=== PATIENT | female | born 1980 | race Hispanic/Latino ===

== ENCOUNTER → 2018-02-18 | Outpatient (CLI) | payer MEDICAID | LOC: RAH 10:05 | PROVIDERS: ATTEND Family Medicine | DX: R92.8 Other abnormal and inconclusive findings on diagnostic imaging of breast (principal); R92.2 Inconclusive mammogram | CPT/HCPCS: 77066 ==

== ENCOUNTER → 2019-07-20 | Outpatient (CLI) | payer MEDICAID | END | disposition home or self-care (01) | LOC: SHCH 09:38 | PROVIDERS: ATTEND Internal Medicine Cardiovascular Disease | DX: I08.8 Other rheumatic multiple valve diseases (principal); I25.5 Ischemic cardiomyopathy | CPT/HCPCS: 93306 ==

== ENCOUNTER 2019-08-25 10:00 | Inpatient (IN) | payer MEDICAID ==
[~2019-08-25] VITALS: Ht 162.6 cm; Wt 51.3 kg
[2019-08-25 12:40] VITALS: BP 126/78
[2019-08-25 12:50] LABS: ALBUMIN 3.6 g/dL (3.5-5.0); BILIRUBIN,TOTAL 0.4 mg/dL (0.2-1.0); CREATININE 1.2 mg/dL (0.5-1.5); TOTAL PROTEIN, SERUM 7.4 g/dL (6.0-8.3)
[2019-08-25 12:59] LABS: INR 1.04 (0.85-1.15); PARTIAL THROMBOPLASTIN TIME 39.3 SEC (26.3-35.5); PROTHROMBIN TIME 10.9 SEC (9.6-11.6)
[2019-08-25] MEDS ORDERED: CARV12.511 PO (13:01)
[2019-08-25 13:03] LABS: BASOPHILS % (AUTO) 0.4 % (0.0-5.0); EOSINOPHILS % (AUTO) 0.1 % (0.0-8.0); HEMATOCRIT 32.3 % (36-48); LYMPHOCYTES % (AUTO) 10.5 % (21.0-51.0); MEAN CORPUSCULAR HGB CONC 34.2 g/dL (32.0-36.0); MEAN CORPUSCULAR VOLUME 93.6 fL (79-99); MONOCYTES % (AUTO) 3.6 % (3.0-13.0); NEUTROPHILS % (AUTO) 85.4 % (40.0-77.0); PLATELET COUNT (AUTO) 164 K/uL (130-400); RED BLOOD CELL COUNT(AUTO) 3.45 MIL/uL (4.00-5.50); WHITE BLOOD COUNT (AUTO) 4.5 K/uL (4.8-10.8)
[2019-08-25] MEDS ORDERED: PRED10TA3 PO (13:03)
[2019-08-25] MEDS ORDERED: FERR325T22 PO (13:03)
[2019-08-25] MEDS ORDERED: ASPI-1012 PO (16:47)
[2019-08-25] MEDS ORDERED: POTA10TA14 PO (16:47)
[2019-08-25] MEDS ORDERED: HYDR200T4 PO (16:47)
[2019-08-25] MEDS ORDERED: FURO20TA4 PO (16:47)
[2019-08-26] VITALS (32 sets, daily range): BP systolic 73–185; BP diastolic 46–102
[2019-08-26] MEDS ORDERED: SODIUM CHLORIDE 0.9% 1000ML 1,000 ML IV ONE (06:14)
[2019-08-26] MEDS ORDERED: CEFUROXIME SODIUM 1.5 GM VIAL ONE (06:14)
--- NOTE | 2019-08-26 07:21 | NUR ---
POTENTIAL FOR INFECTION: SHAVED BILATERAL GROIN AREA AND FOLLOWED BY WIPING WITH JASON: 2% CHLORHEXIDINE GLUCONATE CLOTH PATIENTS PRE-OP SKIN PREP FROM NECK TO LOWER EXTREMITIES.
[2019-08-26] MEDS ORDERED: NITROGLYCERIN 50 MG/D5% WATER 1 BOT ONE (07:39)
[2019-08-26] MEDS ORDERED: NOREPINEPHRINE BITARTRATE 1 MG/1 ML ML IV ONE ×2 (07:39→07:58)
[2019-08-26] MEDS ORDERED: AMIODARONE HCL 50 MG/ML 3 ML VIAL ONE (07:39)
[2019-08-26] MEDS ORDERED: ROPIVACAINE 0.5% 5MG/ML 30ML IJ ONE (07:43)
[2019-08-26] MEDS ORDERED: BACITRACIN 50,000 UNIT VIAL ONE (07:44)
[2019-08-26] MEDS ORDERED: EPINEPHRINE 1 MG/ML AMPULE ONE (07:58)
[2019-08-26] MEDS ORDERED: LIDOCAINE PF 2% 5ML ABBOJECT ONE (07:58)
[2019-08-26] MEDS ORDERED: AMINOCAPROIC ACID 250 MG/ML 20 ML VIAL IV ONE ×2 (07:58→13:42)
[2019-08-26] MEDS ORDERED: PROTAMINE SULFATE 10 MG/ML 25ML VIAL IV ONE (07:58)
[2019-08-26] MEDS ORDERED: HEPARIN SODIUM 1000UNIT/ML 10ML VIAL ONE (07:58)
[2019-08-26] MEDS ORDERED: ESMOLOL HCL 10 MG/ML 10 ML VIAL ONE (07:58)
[2019-08-26] MEDS ORDERED: PROPOFOL 10 MG/ML 20ML VIAL IV ONE (07:59)
[2019-08-26] MEDS ORDERED: FENTANYL CITRATE PF 50 MCG/1 ML 20ML VIAL IJ ONE (07:59)
[2019-08-26] MEDS ORDERED: ROCURONIUM 10MG/1ML SYR 10 MG/ML ML ONE (08:00)
[2019-08-26] MEDS ORDERED: MIDAZOLAM HCL 1 MG/ML 2ML VIAL ONE (08:00)
[2019-08-26] MEDS ORDERED: CEFUROXIME SODIUM 1.5 GM VIAL IVP ONE (08:00)
[2019-08-26] MEDS ORDERED: DELNIDO FORMULA 0 BAG IV ONE (08:08)
[2019-08-26] MEDS ORDERED: SODIUM CHLORIDE 0.9% 500ML 500 ML IV SCH (08:13)
[2019-08-26] MEDS ORDERED: SODIUM CHLORIDE 0.9% 1000ML 1,000 ML IV SCH (08:15)
[2019-08-26] MEDS ORDERED: NOREPINEPHRINE 4MG/NS 250ML 250 ML IV PRN (08:15)
[2019-08-26] MEDS ORDERED: SODIUM CHLORIDE 0.9% 250 ML IV PRN (08:15)
[2019-08-26] MEDS ORDERED: PROPOFOL 1000 MG/100 ML 100 ML IV PRN (08:15)
[2019-08-26] MEDS ORDERED: AMINOCAPROIC ACID 15,000 MG in SODIUM CHLORIDE 0.9% 250 ML IV SCH (08:15)
[2019-08-26] MEDS ORDERED: POTASSIUM PHOS 15 mMOL+NS250ML 250 ML IV PRN (08:15)
[2019-08-26] MEDS ORDERED: ALBUMIN (HUMAN) 5% 250 ML IV PRN (08:15)
[2019-08-26] MEDS ORDERED: DEXTROSE 50%-WATER 50 ML DISP.SYRIN IV PRN (08:15)
[2019-08-26] MEDS ORDERED: MORPHINE SULFATE 4 MG/1ML SYG IV PRN (08:15)
[2019-08-26] MEDS ORDERED: POTASSIUM CHLORIDE 20MEQ/100ML 100 ML IV PRN (08:15)
[2019-08-26] MEDS ORDERED: NITROGLYCERIN 50 MG/D5% WATER 250 BOT IV SCH (08:15)
[2019-08-26] MEDS ORDERED: EPINEPHRINE 8 MG in DEXTROSE 5%-WATER 250 ML IV PRN (08:15)
[2019-08-26] MEDS ORDERED: GLUCAGON 1MG KIT 1 MG ML IM PRN (08:15)
[2019-08-26] MEDS ORDERED: Q-PUMP 1 EACH IRRIG SCH (08:15)
[2019-08-26] MEDS ORDERED: INSULIN REGULAR, HUMAN 3ML 100 UNIT in SODIUM CHLORIDE 0.9% 99 ML IV SCH ×2 (08:15)
[2019-08-26] MEDS ORDERED: MORPHINE SULFATE 2 MG/ML 1ML SYG IV PRN (08:15)
[2019-08-26] MEDS ORDERED: SODIUM CHLORIDE 0.9% 10 ML VIAL IVP PRN (08:15)
[2019-08-26] MEDS ORDERED: MAGNESIUM 2GM PREMIX 50ML 50 ML IV PRN (08:15)
[2019-08-26] MEDS ORDERED: ONDANSETRON HCL 4 MG/2 ML VIAL IV PRN (08:15)
[2019-08-26 08:37] LABS: ABG HCO3 20.8 mmol/L (21.0-28.0); ABG PCO2 37 mmHg (32-45)
[2019-08-26] MEDS: FAMOTIDINE/PF 20 MG/2 ML VIAL IV SCH ×2 (09:00→20:34)
[2019-08-26] MEDS ORDERED: ROPIVACAINE 0.2% 2MG/ML 100ML VIAL IJ ONE (10:00)
[2019-08-26 10:25] LABS: ABG BASE EXCESS -4.7 mmol/L (-2.0-3.0); ABG HCO3 20.3 mmol/L (21.0-28.0); ABG OXYGEN SATURATION 98.9 % (95.0-99.0); ABG PCO2 37 mmHg (32-45)
[2019-08-26 10:49] LABS: ABG BASE EXCESS 1.6 mmol/L (-2.0-3.0); ABG OXYGEN SATURATION 98.8 % (95.0-99.0); ABG PCO2 34 mmHg (32-45)
[2019-08-26 11:25] LABS: ABG BASE EXCESS -12.5 mmol/L (-2.0-3.0); ABG HCO3 13.9 mmol/L (21.0-28.0); ABG OXYGEN SATURATION 99.2 % (95.0-99.0); ABG PCO2 34 mmHg (32-45)
[2019-08-26 11:33] LABS: ABG BASE EXCESS 7.2 mmol/L (-2.0-3.0); ABG HCO3 31.1 mmol/L (21.0-28.0); ABG OXYGEN SATURATION 98.7 % (95.0-99.0); ABG PCO2 41 mmHg (32-45)
[2019-08-26] MEDS ORDERED: VASOPRESSIN 20 UNITS/ML 1ML VIAL ONE (11:36)
[2019-08-26] MEDS ORDERED: GLYCOPYRROLATE 1 MG/5 ML SYRINGE ONE (11:38)
[2019-08-26 11:55] LABS: ABG BASE EXCESS -9.3 mmol/L (-2.0-3.0); ABG PCO2 33 mmHg (32-45)
[2019-08-26] MEDS ORDERED: SODIUM BICARB 50MEQ 50ML VIAL ONE ×2 (11:57)
[2019-08-26 12:39] LABS: ABG BASE EXCESS -0.6 mmol/L (-2.0-3.0); ABG HCO3 22.8 mmol/L (21.0-28.0); ABG OXYGEN SATURATION 98.8 % (95.0-99.0); ABG PCO2 33 mmHg (32-45)
[2019-08-26] MEDS ORDERED: INSULIN HUMULIN R 100 UNIT/ML 3ML ONE (12:44)
--- NOTE | 2019-08-26 13:13 | NUR ---
POST OP ASSESSMENT Received to CVR immediately post op. Not yet responsive to stimulation. No sedation infusing. ST on tele with strong apical heart tones. VS/hemodynamics as recorded. Received pt on IV levophed gtt @5mcg/min, epinephrine gtt @0.15mcg/kg/min, amicar @50ml/hr. OGT in place. Abd flat - absent bowel sounds. Right upper chest surgical drsgs with small amount of bloody drainage - will observe. Ambu infusion catheter in use. CT 's x2 to right lateral chest in place - sanguineous drainage. CT's to 20cm suction. No evidence of air leak. Epicardial wires x2 sets in place - secured. Temporary generator off. Bilateral groin drsgs clean, dry. No evidence of bleeding/oozing or hematoma. F/C patent - clear yellow urine. GARCIA hose/SCD's applied to BLE's. Left IJ CVP line in use. Left radial arterial line patent with acceptable waveform. PIV to LH in use. Assessment completed/recorded.
[2019-08-26] MEDS ORDERED: CEFAZOLIN SODIUM 1 GM VIAL IV SCH (13:15)
[2019-08-26 13:36] LABS: ABG HCO3 22.2 mmol/L (21.0-28.0); ABG OXYGEN SATURATION 98.9 % (95.0-99.0); ABG PCO2 41 mmHg (32-45)
[2019-08-26] MEDS ORDERED: SODIUM BICARB 8.4% 50ML SYRINGE IVP ONE (13:42)
[2019-08-26] MEDS ORDERED: HEPARIN SODIUM 1000UNIT/ML 10ML VIAL IV ONE (13:42)
[2019-08-26] MEDS ORDERED: MANNITOL 25% 50ML VIAL IV ONE (13:42)
[2019-08-26] MEDS ORDERED: PHENYLEPHRINE HCL 10 MG/ML 1ML VIAL IV ONE (13:42)
[2019-08-26] MEDS ORDERED: CALCIUM CHLORIDE 100 MG/ML 10 ML SYG IVP ONE (13:42)
[2019-08-26] MEDS ORDERED: MAGNESIUM SULFATE 1 GM/2 ML VIAL IM ONE (13:42)
[2019-08-26] MEDS ORDERED: ALBUMIN (HUMAN) 25% 50 ML IV ONE (13:42)
[2019-08-26 14:10] LABS: HEMATOCRIT 40.4 % (36-48); MEAN CORPUSCULAR HEMOGLOBIN 31.2 pg (27.0-33.0); MEAN CORPUSCULAR HGB CONC 33.3 g/dL (32.0-36.0); MEAN CORPUSCULAR VOLUME 93.5 fL (79-99); NUCLEATED RED BLOOD CELLS 0.1 % (0.0-0.19); PLATELET COUNT (AUTO) 85 K/uL (130-400); RED BLOOD CELL COUNT(AUTO) 4.32 MIL/uL (4.00-5.50); RED CELL DISTRIBUTION WIDTH 15.1 % (11.0-15.5); WHITE BLOOD COUNT (AUTO) 28.4 K/uL (4.8-10.8)
[2019-08-26 14:20] LABS: INR 1.17 (0.85-1.15); PARTIAL THROMBOPLASTIN TIME 36.5 SEC (26.3-35.5); PROTHROMBIN TIME 12.2 SEC (9.6-11.6)
[2019-08-26 14:31] LABS: CREATININE 1.2 mg/dL (0.5-1.5); MAGNESIUM 3.4 mg/dL (1.80-2.40); PHOSPHORUS 1.6 mg/dL (2.5-4.9); POTASSIUM 3.1 mmol/L (3.5-5.1)
--- NOTE | 2019-08-26 14:53 | NUR ---
STATUS ST on tele. Hemodynamics maintained. IV gtt remain unchanged. Pt not yet responsive to stimulation. Will observe.
[2019-08-26 14:55] LABS: PLATELET MORPHOLOGY COMMENT DECREASED
[2019-08-26] MEDS: SODIUM BICARB 50MEQ 50ML VIAL IV PRN (15:00)
--- NOTE | 2019-08-26 15:58 | NUR ---
STATUS Family member at bedside - unable to provide useful intake information. Questions addressed - aware of CVR visitation. CVR phone number provided to pt's daughter. Pt beginning to arouse with verbal stimulation. Attempts made to reorient/reassure. Does not maintain adequate level of arousal. ST on tele. Strong apical heart tones. VS/hemodynamics as recorded. IV levophed gtt remains @4mcg/min.
[2019-08-26] MEDS: CEFAZOLIN SODIUM 1 GM VIAL IV SCH (16:58)
[2019-08-26] MEDS: FERROUS SULFATE 325 MG TABLET.DR PO SCH (17:04)
[2019-08-26 17:45] LABS: ABG BASE EXCESS 1.2 mmol/L (-2.0-3.0); ABG HCO3 26.3 mmol/L (21.0-28.0); ABG OXYGEN SATURATION 99.2 % (95.0-99.0); ABG PCO2 43 mmHg (32-45)
--- NOTE | 2019-08-26 18:12 | NUR ---
EXTUBATION Weaning parameters, ABG's within acceptable limits. Pt extubated to 40% aerosol mask. Post extubation instructions explained to pt by R.T.
--- NOTE | 2019-08-26 19:30 | NUR ---
ASSESSMENT PT RESTING IN BED. IV FLUIDS INFUSING WITHOUT DIFFICULTY. REPOSITIONS SELF, MOVES ALL EXTREMITIES. DRSG TO RIGHT/LATERAL CHEST AND BILATERAL GROINS INTACT WITH DRAINAGE NOTED AND MARKED. CHEST TUBE TO 2OCM SUCTION. PACING WIRES IN PLACE BUT OFF. 16FR EVANS CATH INTACT AND DRAINING CLEAR YELLOW URINE. GARCIA HOSE/SCD IN PLACE. NURSES AT BEDSIDE 1:1. ASSESSMENT COMPLETED, SEE FLOW SHEET.
[2019-08-26 19:58] LABS: ABG BASE EXCESS 0.5 mmol/L (-2.0-3.0); ABG HCO3 25.2 mmol/L (21.0-28.0); ABG OXYGEN SATURATION 99.2 % (95.0-99.0); ABG PCO2 41 mmHg (32-45)
--- NOTE | 2019-08-26 20:00 | NUR ---
ABG ABG COMPLETED, FIO2 DECREASED TO 28% PER AEROSOL MASK.
--- NOTE | 2019-08-26 22:30 | NUR ---
O2 PLACED ON 02 2L NC
[2019-08-27] VITALS (24 sets, daily range): BP systolic 94–134; BP diastolic 38–86
[2019-08-27] MEDS: CEFAZOLIN SODIUM 1 GM VIAL IV SCH ×2 (01:10→09:34)
[2019-08-27 04:15] LABS: ABG BASE EXCESS -1.8 mmol/L (-2.0-3.0); ABG HCO3 22.8 mmol/L (21.0-28.0); ABG OXYGEN SATURATION 98.7 % (95.0-99.0); ABG PCO2 39 mmHg (32-45)
[2019-08-27 04:21] LABS: MEAN CORPUSCULAR HEMOGLOBIN 31.2 pg (27.0-33.0); MEAN CORPUSCULAR HGB CONC 33.9 g/dL (32.0-36.0); MEAN CORPUSCULAR VOLUME 91.9 fL (79-99); PLATELET COUNT (AUTO) 93 K/uL (130-400); RED BLOOD CELL COUNT(AUTO) 3.15 MIL/uL (4.00-5.50); RED CELL DISTRIBUTION WIDTH 15.4 % (11.0-15.5); WHITE BLOOD COUNT (AUTO) 19.5 K/uL (4.8-10.8)
[2019-08-27] MEDS: SODIUM BICARB 50MEQ 50ML VIAL IV PRN (04:22)
[2019-08-27] MEDS: TRAMADOL HCL 50 MG TABLET PO PRN ×2 (04:23→18:32)
[2019-08-27 04:39] LABS: CREATININE 1.9 mg/dL (0.5-1.5); MAGNESIUM 2.3 mg/dL (1.80-2.40); POTASSIUM 4.2 mmol/L (3.5-5.1)
[2019-08-27 04:41] LABS: INR 1.06 (0.85-1.15); PARTIAL THROMBOPLASTIN TIME 33.7 SEC (26.3-35.5); PROTHROMBIN TIME 11.1 SEC (9.6-11.6)
--- NOTE | 2019-08-27 05:33 | NUR ---
TRANSFER PT TRANSFERRED INTO ROOM 206. CONNECTED TO BEDSIDE MONITOR. WHITE BOARD UP-DATED.
--- NOTE | 2019-08-27 07:02 | NUR ---
REPORT BEDSIDE REPORT GIVEN TO MIKE LAWRENCE. PENDING ION CALCIUM ENDORSED TO MIKE LAWRENCE
[2019-08-27] MEDS ORDERED: ASPIRIN 81MG TAB.CHEW PO SCH (09:00)
[2019-08-27] MEDS ORDERED: HYDROCORTISONE SOD SUCCINATE 100 MG/2 ML VIAL IV SCH (09:00)
[2019-08-27] MEDS: METOPROLOL TARTRATE 25 MG TAB PO SCH ×2 (09:00→20:06)
[2019-08-27] MEDS ORDERED: CALCIUM GLUCONATE 1 GM/10 ML VIAL IV ONE (09:22)
[2019-08-27] MEDS: FERROUS SULFATE 325 MG TABLET.DR PO SCH ×2 (09:31→17:24)
[2019-08-27] MEDS: PREDNISONE 10 MG TABLET PO SCH (09:32)
[2019-08-27] MEDS: HYDROXYCHLOROQUINE SULFATE 200 MG TAB PO SCH (09:32)
[2019-08-27] MEDS: CALCIUM GLUCONATE 1 GM in SODIUM CHLORIDE 0.9% 50 ML IV PRN ×2 (09:33→09:34)
[2019-08-27] MEDS: FAMOTIDINE/PF 20 MG/2 ML VIAL IV SCH ×2 (09:34→20:01)
[2019-08-27] MEDS ORDERED: ALBUMIN (HUMAN) 5% 250 ML IV ONE (11:55)
--- NOTE | 2019-08-27 12:31 | NUR ---
Pt WITH EXTERNAL PACER, PAIN PUMP, CHEST TUBES, EVANS Addendum: 08/27/19 at 1232 by SUN SCHWARZ, PT PT Amended: Links added.
[2019-08-27] MEDS ORDERED: DEXTROSE 5%-WATER 1,000 ML IV SCH (19:15)
--- NOTE | 2019-08-27 19:30 | NUR ---
price note met with patient and states resides athome with children, and 19yo daughter. daughter and neighbor help care for her children. pt independent with ambulation and adls. no dme. no services. no dc needs. dc plan is for home. is open to snf if needed and orderd by . Addendum: 08/27/19 at 1932 by IDANIA BEST CM Amended: Links added.
[2019-08-27] MEDS ORDERED: WARFARIN SODIUM 2 MG TAB PO ONE (20:20)
[2019-08-28] VITALS (23 sets, daily range): BP systolic 101–139; BP diastolic 56–92
[2019-08-28] MEDS: TRAMADOL HCL 50 MG TABLET PO PRN ×2 (01:13→19:19)
[2019-08-28 04:40] LABS: BASOPHILS % (AUTO) 0.2 % (0.0-5.0); EOSINOPHILS % (AUTO) 0.1 % (0.0-8.0); LYMPHOCYTES % (AUTO) 10.4 % (21.0-51.0); MEAN CORPUSCULAR HEMOGLOBIN 31.3 pg (27.0-33.0); MEAN CORPUSCULAR HGB CONC 33.7 g/dL (32.0-36.0); MEAN CORPUSCULAR VOLUME 92.8 fL (79-99); MONOCYTES % (AUTO) 6.5 % (3.0-13.0); NEUTROPHILS % (AUTO) 82.8 % (40.0-77.0); PLATELET COUNT (AUTO) 60 K/uL (130-400); RED BLOOD CELL COUNT(AUTO) 1.99 MIL/uL (4.00-5.50); WHITE BLOOD COUNT (AUTO) 12.7 K/uL (4.8-10.8)
[2019-08-28 04:48] LABS: POTASSIUM 3.9 mmol/L (3.5-5.1)
[2019-08-28 04:50] LABS: HEMATOCRIT 18.4 % (36-48)
[2019-08-28 04:51] LABS: INR 1.02 (0.85-1.15); PROTHROMBIN TIME 10.7 SEC (9.6-11.6)
--- NOTE | 2019-08-28 05:24 | NUR ---
DR. DAVID HERNANDEZ NOTIFIED OF LATEST H/H NEW ORDERS RECEIVED AND WILL BE CARRIED OUT. CT TUBE LINES WERE STRIPPED NO INCREASE IN OUTPUT NOTED. DRESSING TO CHEST TUBES CHANGED AT THIS TIME MODERATE SEROSANGUINEOUS DRAINAGE ON DRESSING NO ACTIVE LEAKING NOTED AT INSERTION SITES. WILL CONTINUE TO MONITOR.
--- NOTE | 2019-08-28 07:31 | NUR ---
PT STABLE-FEELS WEAK AND LIGHTHEADED. RECEIVING BLOOD TRANSFUSION AT PRESENT TIME. AFEBRILE. PT EDUCATED ON MECHANICAL VALVE REPLACEMENT POST OP CARE AND THERAPY. VERBALIZES UNDERSTANDING . WILL MAINTAIN BEDREST FOR NOW UNTIL TRANSFUSED AND FEELING BETTER.
[2019-08-28] MEDS: METOPROLOL TARTRATE 25 MG TAB PO SCH ×2 (07:34→20:31)
[2019-08-28] MEDS: FERROUS SULFATE 325 MG TABLET.DR PO SCH ×2 (08:45→17:06)
[2019-08-28] MEDS: HYDROXYCHLOROQUINE SULFATE 200 MG TAB PO SCH (08:45)
[2019-08-28] MEDS: PREDNISONE 10 MG TABLET PO SCH (08:45)
[2019-08-28] MEDS: FAMOTIDINE/PF 20 MG/2 ML VIAL IV SCH ×2 (08:45→20:31)
[2019-08-28] MEDS ORDERED: HYDROCORTISONE SOD SUCCINATE 100 MG/2 ML VIAL IV SCH (09:00)
--- NOTE | 2019-08-28 11:43 | NUR ---
GETTING TRANSFUSION. HELD PER RENE LAWRENCE
--- NOTE | 2019-08-28 12:09 | NUR ---
PT HAS RECEIVED 2 UNITS PRBCS. OFF VASOPRESSORS. STABLE VS. OUT OF BED TO CHAIR. LEFT RADIAL A-LINE REMOVED INTACT. NO HEMATOMA. VERBALIZES NO COMPLAINTS. PENDING CV ROUNDS. STILL HAS 2 CHEST TUBES AND LEFT INTERNAL JUGULAR CORDIS CATH.
--- NOTE | 2019-08-28 14:55 | NUR ---
PT AMBULATED IN HALLWAY AND NURSES STATION. NO DISTRESS. NO SOB OR DIZZINESS. NOW SITTING AT EDGE OF BED. CALL LIGHT WITH IN REACH
--- NOTE | 2019-08-28 19:32 | NUR ---
HAND OFF REPORT GIVEN TO KEVAN LAWRENCE
[2019-08-29] VITALS (24 sets, daily range): BP systolic 114–144; BP diastolic 71–102
[2019-08-29] MEDS: TRAMADOL HCL 50 MG TABLET PO PRN ×2 (03:14→14:34)
[2019-08-29 04:16] LABS: BASOPHILS % (AUTO) 0.4 % (0.0-5.0); EOSINOPHILS % (AUTO) 0.4 % (0.0-8.0); HEMATOCRIT 25.8 % (36-48); LYMPHOCYTES % (AUTO) 13.4 % (21.0-51.0); MEAN CORPUSCULAR HEMOGLOBIN 30.8 pg (27.0-33.0); MEAN CORPUSCULAR HGB CONC 34.2 g/dL (32.0-36.0); MEAN CORPUSCULAR VOLUME 90.2 fL (79-99); MONOCYTES % (AUTO) 6.7 % (3.0-13.0); NEUTROPHILS % (AUTO) 79.1 % (40.0-77.0); PLATELET COUNT (AUTO) 59 K/uL (130-400); RED BLOOD CELL COUNT(AUTO) 2.86 MIL/uL (4.00-5.50); RED CELL DISTRIBUTION WIDTH 15.3 % (11.0-15.5); WHITE BLOOD COUNT (AUTO) 8.8 K/uL (4.8-10.8)
[2019-08-29 04:26] LABS: INR 1.1 (0.85-1.15); PROTHROMBIN TIME 11.5 SEC (9.6-11.6)
[2019-08-29 04:42] LABS: ALBUMIN 2.4 g/dL (3.5-5.0); BILIRUBIN,TOTAL 0.6 mg/dL (0.2-1.0); CREATININE 0.9 mg/dL (0.5-1.5); POTASSIUM 3.6 mmol/L (3.5-5.1); TOTAL PROTEIN, SERUM 5.2 g/dL (6.0-8.3)
[2019-08-29] MEDS: METOPROLOL TARTRATE 25 MG TAB PO SCH ×2 (08:00→21:16)
[2019-08-29] MEDS: HYDROXYCHLOROQUINE SULFATE 200 MG TAB PO SCH (08:00)
[2019-08-29] MEDS: POTASSIUM CHLORIDE 20 MEQ ERTAB PO SCH ×2 (08:00→21:16)
[2019-08-29] MEDS: FERROUS SULFATE 325 MG TABLET.DR PO SCH ×2 (08:00→16:26)
[2019-08-29] MEDS: FUROSEMIDE 10 MG/ML 2ML VIAL IV SCH ×2 (08:00→21:15)
[2019-08-29] MEDS: FAMOTIDINE/PF 20 MG/2 ML VIAL IV SCH ×2 (08:00→21:15)
[2019-08-29] MEDS: PREDNISONE 10 MG TABLET PO SCH ×2 (08:01)
[2019-08-29] MEDS ORDERED: HYDROCORTISONE SOD SUCCINATE 100 MG/2 ML VIAL IV SCH (09:00)
--- NOTE | 2019-08-29 14:42 | NUR ---
RD NOTIFICATION DX: SEVERE MITRAL REGURGITATION. HX: LUPUS, HTN, CHRONIC ANEMIA. DIET: REGULAR. LBM: 08/28. SKIN INTACT, NO EDEMA. PO 25-50% AND HAS POOR APPETITE PER PT. NO NAUSEA, VOMITING OR DIARRHEA [id number]. S/P CISCO #[id number] MECHANICAL VALVE REPLACEMENT. PT ON COUMADIN FOR THE FIRST-TIME, NEVER BEEN INSTRUCTED BEFORE. RD PROVIDED VITAMIN K AND COUMADIN EDUCATION, WELL HEART HEALTHY DIET AND NUTRITION EDUCATION. PT VERBALIZED UNDERSTANDING AND HANDOUTS WERE LEFT WITH PT TO TAKE HOME. RD RECOMMENDS TO CHANGE DIET ORDER TO HEART HEALTHY. RD PROVIDED HEART HEALTHY AND COUMADIN DIET AND NUTRITION EDUCATION. RD WILL CONTINUE TO MONITOR AND FOLLOW UP NEEDED. THANK YOU. Addendum: 08/29/19 at [address] Amended: Links added.
--- NOTE | 2019-08-29 14:44 | NUR ---
DIET EDUCATION PT ON COUMADIN FOR THE FIRST-TIME, NEVER BEEN INSTRUCTED BEFORE. FELECIA PROVIDED VITAMIN K AND COUMADIN EDUCATION, WELL HEART HEALTHY DIET AND NUTRITION EDUCATION. PT VERBALIZED UNDERSTANDING AND HANDOUTS WERE LEFT WITH PT TO TAKE HOME. Addendum: 08/29/19 at [address] Amended: Links added.
[2019-08-29] MEDS ORDERED: WARFARIN SODIUM 2 MG TAB PO SCH (16:00)
[2019-08-30] VITALS (12 sets, daily range): BP systolic 115–147; BP diastolic 70–87
[2019-08-30 04:55] LABS: HEMATOCRIT 31.2 % (36-48); MEAN CORPUSCULAR HEMOGLOBIN 31.6 pg (27.0-33.0); MEAN CORPUSCULAR HGB CONC 34.9 g/dL (32.0-36.0); MEAN CORPUSCULAR VOLUME 90.5 fL (79-99); PLATELET COUNT (AUTO) 56 K/uL (130-400); RED BLOOD CELL COUNT(AUTO) 3.45 MIL/uL (4.00-5.50); RED CELL DISTRIBUTION WIDTH 14.3 % (11.0-15.5); WHITE BLOOD COUNT (AUTO) 7.7 K/uL (4.8-10.8)
[2019-08-30 05:02] LABS: CREATININE 1.1 mg/dL (0.5-1.5); POTASSIUM 3.4 mmol/L (3.5-5.1)
[2019-08-30 05:04] LABS: INR 1.05 (0.85-1.15)
[2019-08-30] MEDS: FUROSEMIDE 10 MG/ML 2ML VIAL IV SCH (08:44)
[2019-08-30] MEDS: FAMOTIDINE/PF 20 MG/2 ML VIAL IV SCH (08:44)
[2019-08-30] MEDS: POTASSIUM CHLORIDE 20 MEQ ERTAB PO SCH (08:45)
[2019-08-30] MEDS: METOPROLOL TARTRATE 25 MG TAB PO SCH ×2 (08:45→21:11)
[2019-08-30] MEDS: FERROUS SULFATE 325 MG TABLET.DR PO SCH ×2 (08:45→16:17)
[2019-08-30] MEDS: PREDNISONE 10 MG TABLET PO SCH ×2 (08:45→08:46)
[2019-08-30] MEDS: HYDROXYCHLOROQUINE SULFATE 200 MG TAB PO SCH (08:46)
[2019-08-30] MEDS: TRAMADOL HCL 50 MG TABLET PO PRN ×2 (08:51→18:36)
[2019-08-30] MEDS ORDERED: HYDROCORTISONE SOD SUCCINATE 100 MG/2 ML VIAL IV SCH (09:00)
--- NOTE | 2019-08-30 09:00 | NUR ---
AM NOTE Awake, alert, and oriented x3. Denies any chest pain or shortness of breath. Dr. Sharma in to see pt, update given, new orders received and will carry out. Left IJ Cordis discontinued as ordered, manual pressure held x 15 minutes, no oozing noted. Instructed on use of call light for any assistance and educated on Warfarin regimen, verbalized understanding. Sinus mechanism in 90s. Side rails up.
[2019-08-30] MEDS ORDERED: PHARMACY COMMUNICATION MISC SCH (09:30)
[2019-08-30] MEDS: WARFARIN SODIUM 5 MG TAB PO SCH (16:16)
[2019-08-30] MEDS ORDERED: FUROSEMIDE 20 MG TABLET PO SCH (17:00)
[2019-08-30] MEDS ORDERED: POTASSIUM CHLORIDE 10% ELIXIR 20 MEQ/15 ML UDCUP PO SCH (21:00)
[2019-08-30] MEDS: FAMOTIDINE 20MG TAB 20 MG TAB PO SCH (21:11)
--- NOTE | 2019-08-30 23:16 | NUR ---
Received report from nurse Art.Pt. is moved to room 218,condition stable,accompanied by daughter.
--- NOTE | 2019-08-30 23:38 | NUR ---
physical assessment done and no significant changed noted from recent shift assessment .Pacing wires are intact.
[2019-08-31] VITALS (10 sets, daily range): BP systolic 97–155; BP diastolic 51–84
[2019-08-31 03:51] LABS: HEMATOCRIT 29.8 % (36-48); MEAN CORPUSCULAR HEMOGLOBIN 31.1 pg (27.0-33.0); MEAN CORPUSCULAR HGB CONC 34.8 g/dL (32.0-36.0); MEAN CORPUSCULAR VOLUME 89.5 fL (79-99); PLATELET COUNT (AUTO) 63 K/uL (130-400); RED BLOOD CELL COUNT(AUTO) 3.33 MIL/uL (4.00-5.50); RED CELL DISTRIBUTION WIDTH 14.4 % (11.0-15.5); WHITE BLOOD COUNT (AUTO) 6.1 K/uL (4.8-10.8)
[2019-08-31 04:03] LABS: INR 1.29 (0.85-1.15); PROTHROMBIN TIME 13.4 SEC (9.6-11.6)
[2019-08-31 04:18] LABS: CREATININE 1.1 mg/dL (0.5-1.5); POTASSIUM 3.8 mmol/L (3.5-5.1)
--- NOTE | 2019-08-31 06:34 | NUR ---
Pt. remained stable, resting quietly for the most part of the shift.Denies pain or any discomfort.
[2019-08-31] MEDS ORDERED: HEPARIN SODIUM 5000UNIT/ML 1ML VIAL SQ PRN (08:00)
[2019-08-31] MEDS: FAMOTIDINE 20MG TAB 20 MG TAB PO SCH ×2 (08:16→20:44)
[2019-08-31] MEDS: HYDROXYCHLOROQUINE SULFATE 200 MG TAB PO SCH (08:16)
[2019-08-31] MEDS: FERROUS SULFATE 325 MG TABLET.DR PO SCH ×2 (08:17→18:33)
[2019-08-31] MEDS: PREDNISONE 10 MG TABLET PO SCH (08:17)
[2019-08-31] MEDS: METOPROLOL TARTRATE 25 MG TAB PO SCH ×3 (08:22→20:44)
[2019-08-31] MEDS: FUROSEMIDE 20 MG TABLET PO SCH (08:22)
[2019-08-31] MEDS: POTASSIUM CHLORIDE 10% ELIXIR 20 MEQ/15 ML UDCUP PO SCH (08:23)
[2019-08-31] MEDS: ASPIRIN 81 MG EC TAB PO SCH (08:23)
[2019-08-31 09:23] LABS: INR 1.39 (0.85-1.15); PARTIAL THROMBOPLASTIN TIME 47.1 SEC (26.3-35.5); PROTHROMBIN TIME 14.4 SEC (9.6-11.6)
[2019-08-31] MEDS: HEPARIN 25000 UNITS/250 ML D5W 250 ML IV SCH (10:16)
[2019-08-31 16:17] LABS: INR 1.56 (0.85-1.15); PROTHROMBIN TIME 16.1 SEC (9.6-11.6)
[2019-08-31 16:36] LABS: PARTIAL THROMBOPLASTIN TIME 104.6 SEC (26.3-35.5)
[2019-08-31] MEDS: TRAMADOL HCL 50 MG TABLET PO PRN (18:33)
[2019-08-31] MEDS: WARFARIN SODIUM 5 MG TAB PO SCH (18:34)
[2019-08-31 23:06] LABS: INR 1.71 (0.85-1.15); PARTIAL THROMBOPLASTIN TIME 73.8 SEC (26.3-35.5); PROTHROMBIN TIME 17.6 SEC (9.6-11.6)
[2019-09-01 04:35] VITALS: BP 132/83
[2019-09-01 04:50] LABS: BASOPHILS % (AUTO) 0.4 % (0.0-5.0); EOSINOPHILS % (AUTO) 1.9 % (0.0-8.0); HEMATOCRIT 30.8 % (36-48); MEAN CORPUSCULAR HGB CONC 35.1 g/dL (32.0-36.0); MEAN CORPUSCULAR VOLUME 91.1 fL (79-99); MONOCYTES % (AUTO) 12.3 % (3.0-13.0); NEUTROPHILS % (AUTO) 65.4 % (40.0-77.0); PLATELET COUNT (AUTO) 98 K/uL (130-400); RED BLOOD CELL COUNT(AUTO) 3.38 MIL/uL (4.00-5.50); RED CELL DISTRIBUTION WIDTH 14.6 % (11.0-15.5); WHITE BLOOD COUNT (AUTO) 6.2 K/uL (4.8-10.8)
[2019-09-01 05:00] LABS: INR 1.92 (0.85-1.15); PARTIAL THROMBOPLASTIN TIME 74.9 SEC (26.3-35.5); PROTHROMBIN TIME 19.7 SEC (9.6-11.6)
--- NOTE | 2019-09-01 06:00 | NUR ---
TRANSFER LAST PTT REVIEWED HEPARIN ADJUSTED PER PROTOCOL. PATIENT MOVED TO BEDSIDE CHAIR AND TRANSFERRED TO ROOM 201. [id number] PATIENT TRANSFERRED BACK TO BED. REVIEWED HEPARIN RATE WITH MELINDA BETH. BEDSIDE REPORT GIVEN TO MELINDA BETH. CARE ENDORSED
--- NOTE | 2019-09-01 07:20 | NUR ---
RECEIVED THIS PATIENT ON BED WITH NO COMPLAINTS OF PAIN NOR ANY DISCOMFORT. HEPARIN INFUSING VIA PUMP CURRENTLY SET AT 600 UNITS/HR. NEXT PTT SCHEDULED TO BE DRAWN AT 10:30AM. FULL SYSTEMIC ASSESSMENT DONE. CALL LIGHT WITHIN REACH. INSTRUCTED TO CALL FOR ASSISTANCE.
[2019-09-01 07:37] VITALS: BP 111/67
[2019-09-01] MEDS: ASPIRIN 81 MG EC TAB PO SCH (08:02)
[2019-09-01] MEDS: HYDROXYCHLOROQUINE SULFATE 200 MG TAB PO SCH (08:02)
[2019-09-01] MEDS: FERROUS SULFATE 325 MG TABLET.DR PO SCH ×2 (08:02→16:57)
[2019-09-01] MEDS: POTASSIUM CHLORIDE 10% ELIXIR 20 MEQ/15 ML UDCUP PO SCH (08:02)
[2019-09-01] MEDS: FAMOTIDINE 20MG TAB 20 MG TAB PO SCH ×2 (08:02→19:45)
[2019-09-01] MEDS: FUROSEMIDE 20 MG TABLET PO SCH (08:03)
[2019-09-01] MEDS: PREDNISONE 10 MG TABLET PO SCH (08:03)
[2019-09-01] MEDS: METOPROLOL TARTRATE 25 MG TAB PO SCH ×3 (08:12→19:47)
--- NOTE | 2019-09-01 10:34 | NUR ---
PTT THERAPEUTIC AT 65.7. WILL KEEP CURRENT HEPARIN DRIP SETTINGS AT 600UNITS/HR. NEXT PTT RECHECK IS AT 16:30.
[2019-09-01 11:01] LABS: INR 2.1 (0.85-1.15); PARTIAL THROMBOPLASTIN TIME 65.7 SEC (26.3-35.5); PROTHROMBIN TIME 21.4 SEC (9.6-11.6)
[2019-09-01 11:16] VITALS: BP 99/63
[2019-09-01 15:33] VITALS: BP 112/66
[2019-09-01] MEDS: HEPARIN 25000 UNITS/250 ML D5W 250 ML IV SCH (17:00)
[2019-09-01] MEDS ORDERED: 4 PO SCH (17:00)
[2019-09-01 17:09] LABS: INR 2.14 (0.85-1.15); PARTIAL THROMBOPLASTIN TIME 67.4 SEC (26.3-35.5); PROTHROMBIN TIME 21.8 SEC (9.6-11.6)
[2019-09-01 19:08] VITALS: BP 112/68
[2019-09-01] MEDS: TRAMADOL HCL 50 MG TABLET PO PRN (19:46)
[2019-09-01 23:07] LABS: INR 2.12 (0.85-1.15); PARTIAL THROMBOPLASTIN TIME 82.3 SEC (26.3-35.5); PROTHROMBIN TIME 21.6 SEC (9.6-11.6)
[2019-09-01 23:11] VITALS: BP 107/67
[2019-09-02 03:20] VITALS: BP 112/73
[2019-09-02 07:00] VITALS: BP 110/73
[2019-09-02] MEDS: FAMOTIDINE 20MG TAB 20 MG TAB PO SCH ×2 (08:18→20:38)
[2019-09-02] MEDS: POTASSIUM CHLORIDE 10% ELIXIR 20 MEQ/15 ML UDCUP PO SCH (08:18)
[2019-09-02] MEDS: FUROSEMIDE 20 MG TABLET PO SCH (08:18)
[2019-09-02] MEDS: PREDNISONE 10 MG TABLET PO SCH (08:18)
[2019-09-02] MEDS: ASPIRIN 81 MG EC TAB PO SCH (08:18)
[2019-09-02] MEDS: HYDROXYCHLOROQUINE SULFATE 200 MG TAB PO SCH (08:19)
[2019-09-02] MEDS: FERROUS SULFATE 325 MG TABLET.DR PO SCH ×2 (08:19→16:57)
[2019-09-02] MEDS: METOPROLOL TARTRATE 25 MG TAB PO SCH ×3 (08:19→20:38)
[2019-09-02 10:32] LABS: INR 2.03 (0.85-1.15); PROTHROMBIN TIME 20.7 SEC (9.6-11.6)
[2019-09-02 11:00] VITALS: BP 107/66
--- NOTE | 2019-09-02 12:19 | NUR ---
DC PLAN LET NURSE KNOW AND ORANGE PAPER. PATIENT IS A MEDICAID AND IS AMBULATING 300FT. PLAN IS TO DISCHARGE HOME. Addendum: 09/02/19 at 1220 by GUILHERME GREEN RN CM Amended: Links added.
[2019-09-02 15:00] VITALS: BP 104/61
[2019-09-02] MEDS: WARFARIN SODIUM 2 MG TAB PO SCH (16:57)
[2019-09-02] MEDS: TRAMADOL HCL 50 MG TABLET PO PRN (18:12)
[2019-09-02 19:25] VITALS: BP 110/66
[2019-09-02 23:32] VITALS: BP 104/62
[2019-09-03 03:59] VITALS: BP 105/73
[2019-09-03 07:00] VITALS: BP 110/74
[2019-09-03] MEDS: PREDNISONE 10 MG TABLET PO SCH (09:17)
[2019-09-03] MEDS: METOPROLOL TARTRATE 25 MG TAB PO SCH ×3 (09:17→21:00)
[2019-09-03] MEDS: HYDROXYCHLOROQUINE SULFATE 200 MG TAB PO SCH (09:17)
[2019-09-03] MEDS: FUROSEMIDE 20 MG TABLET PO SCH (09:17)
[2019-09-03] MEDS: FAMOTIDINE 20MG TAB 20 MG TAB PO SCH ×2 (09:17→20:30)
[2019-09-03] MEDS: FERROUS SULFATE 325 MG TABLET.DR PO SCH ×2 (09:17→16:58)
[2019-09-03] MEDS: POTASSIUM CHLORIDE 10% ELIXIR 20 MEQ/15 ML UDCUP PO SCH (09:18)
[2019-09-03] MEDS: ASPIRIN 81 MG EC TAB PO SCH (09:19)
[2019-09-03 11:00] VITALS: BP 93/63
[2019-09-03 15:00] VITALS: BP 108/60
[2019-09-03 16:54] LABS: INR 2.47 (0.85-1.15)
[2019-09-03] MEDS: WARFARIN SODIUM 2 MG TAB PO SCH (16:58)
[2019-09-03] MEDS: TRAMADOL HCL 50 MG TABLET PO PRN (20:35)
[2019-09-03 20:46] VITALS: BP 104/69
--- NOTE | 2019-09-03 21:11 | NUR ---
SUTURE DC Patients sutures were removed without issues. cleansed sites with chloraprep , 3 sutures were removed and and steri strips placed x 2 . patient educated on proper care of incision sites and s/s of infection . verbalized understanding
== END 2019-09-03 23:17 | DRG 163 ==
LOC: EDSTATUS 10:00 → DAHIP 08-26 05:44 → 2CV 08-26 09:59 → 2BH 08-27 05:50 → 2CH 08-30 22:57 → 2AH 09-01 06:10
PROVIDERS: ADMIT Thoracic Surgery (Cardiothoracic Vascular Surgery); ATTEND Thoracic Surgery (Cardiothoracic Vascular Surgery)
PROC: 02RG0JZ Replacement of Mitral Valve with Synthetic Substitute, Open Approach (ICD-10-PCS; principal; 2019-08-26 07:30)
PROC: 30233N1 Transfusion of Nonautologous Red Blood Cells into Peripheral Vein, Percutaneous Approach (ICD-10-PCS; 2019-08-26 07:30)
DX: I34.0 Nonrheumatic mitral (valve) insufficiency (principal); E87.0 Hyperosmolality and hypernatremia; D69.6 Thrombocytopenia, unspecified; I31.3 Pericardial effusion (noninflammatory); M32.11 Endocarditis in systemic lupus erythematosus; M32.9 Systemic lupus erythematosus, unspecified; Z79.52 Long term (current) use of systemic steroids; I10 Essential (primary) hypertension; Z79.01 Long term (current) use of anticoagulants; Z88.8 Allergy status to other drugs, medicaments and biological substances; D62 Acute posthemorrhagic anemia
CPT/HCPCS: 36415; 36430; 36600; 71045; 71046; 76998; 80048; 80053; 80061; 82330; 82435; 82803; 82947; 82948; 83036; 83605; 83735; 84100; 84132; 84295; 85018; 85025; 85027; 85347; 85610; 85730; 86022; 86850; 86900; 86901; 86922; 87070; 87076; 88305; 88311; 93005; 93318; 93880; 94002; 94010; 94150; 97039; A4357; A7048; G0378; J0171; J0282; J0610; J0690; J0697; J1644; J1720; J1815; J1940; J2001; J2150; J2250; J2370; J2704; J2720; J2795; J3010; J3475; J3480; J3490; J7030; J7040; J7060; J7070; J7512; P9016; P9045; P9047

== ENCOUNTER 2019-11-15 05:11 | Observation (INO) | payer MEDICAID ==
[~2019-11-15] VITALS: Ht 160 cm; Wt 54.5 kg
[~2019-11-15 05:11] MED LIST: ASPI-1012 PO; FERR325T22 PO; FURO20TA4 PO; HYDR200T4 PO; POTA10TA14 PO; PRED10TA3 PO
[2019-11-15 05:56] LABS: BASOPHILS % (AUTO) 0.7 % (0.0-5.0); EOSINOPHILS % (AUTO) 1.4 % (0.0-8.0); HEMATOCRIT 33.6 % (36-48); LYMPHOCYTES % (AUTO) 31.4 % (21.0-51.0); MEAN CORPUSCULAR HEMOGLOBIN 31.1 pg (27.0-33.0); MEAN CORPUSCULAR VOLUME 94.1 fL (79-99); NEUTROPHILS % (AUTO) 56.2 % (40.0-77.0); PLATELET COUNT (AUTO) 279 K/uL (130-400); RED BLOOD CELL COUNT(AUTO) 3.57 MIL/uL (4.00-5.50); WHITE BLOOD COUNT (AUTO) 2.9 K/uL (4.8-10.8)
[2019-11-15 06:00] LABS: POTASSIUM 3.6 mmol/L (3.5-5.1)
[2019-11-15 06:02] LABS: APPEARANCE,URINE Cloudy (CLEAR); BILIRUBIN,URINE Negative (NEGATIVE); COLOR,URINE Yellow (YELLOW); GLUCOSE, URINE (UA) Negative (NEGATIVE); KETONES,URINE Negative (NEGATIVE); LEUKOCYTE ESTERASE ,URINE Large (NEGATIVE); NITRATE,URINE Positive (NEGATIVE); OCCULT BLOOD,URINE Large (NEGATIVE); PH,URINE 6.5 (5.0-8.0); PROTEIN,URINE POS 1+ mg/dL (NEGATIVE); UROBILINOGEN,URINE 0.2 mg/dL (0.2-1.0)
[2019-11-15 06:05] LABS: ALBUMIN 3.5 g/dL (3.5-5.0); BILIRUBIN,TOTAL 0.3 mg/dL (0.2-1.0); CRP QUANTITATIVE 33.4 mg/L (0.00-9.0); INR 3.33 (0.85-1.15); PARTIAL THROMBOPLASTIN TIME 51.3 SEC (26.3-35.5); PROTHROMBIN TIME 33.4 SEC (9.6-11.6); TOTAL PROTEIN, SERUM 7.3 g/dL (6.0-8.3)
[2019-11-15 06:05] LABS: HCG,QUAL RESULT NEGATIVE (NEGATIVE)
[2019-11-15 06:09] LABS: BACTERIA,URINE Many /HPF (None Seen); SQUAMOUS EPITHELIAL CELL,UR Moderate /HPF (0-2); WBC,URINE 26-50 /HPF (0-1)
[2019-11-15 06:11] LABS: AMPHET/METH SCREEN,URINE NEGATIVE (NEGATIVE); BARBITURATE SCREEN, URINE NEGATIVE (NEGATIVE); BENZODIAZEPINES SCREEN,URINE NEGATIVE (NEGATIVE); CANNABINOID SCREEN,URINE NEGATIVE (NEGATIVE); COCAINE SCREEN,URINE NEGATIVE (NEGATIVE); OPIATE SCREEN,URINE NEGATIVE (NEGATIVE); PHENCYCLIDINE SCREEN,URINE NEGATIVE (NEGATIVE)
[2019-11-15 06:24] LABS: BAND NEUTROPHILS % (MANUAL) 2 % (0-2); BASOPHILS % (MANUAL) 2 % (0-2); EOSINOPHILS % (MANUAL) 1 % (1-6); LYMPHOCYTES % (MANUAL) 27 % (22-44); MAN.DIFF COMMENT-IMPRESSION MANUAL DIFFERENTIAL; MONOCYTES % (MANUAL) 10 % (2-9); SEGMENTED NEUTROPHILS % 58 % (40-70)
[2019-11-15 07:03] LABS: ERYTHROCYTE SEDIMENTATION RATE 30 MM/HR (0-20)
[2019-11-15] MEDS ORDERED: SODIUM CHLORIDE 0.9% 100 ML IV ONE ×2 (07:58→11:20)
[2019-11-15] MEDS ORDERED: KETOROLAC TROMETHAMINE 30MG/ML ONE (07:58)
[2019-11-15] MEDS ORDERED: CEFTRIAXONE SODIUM 1 GM ONE ×2 (07:58→11:20)
[2019-11-15] MEDS ORDERED: ONDANSETRON HCL 4 MG/2 ML VIAL IVP PRN (09:15)
[2019-11-15] MEDS: NITROGLYCERIN 1GM/1 INCH PACKET TD SCH ×2 (09:15→17:15)
[2019-11-15] MEDS ORDERED: KETOROLAC TROMETHAMINE 15MG/ML IV PRN (09:15)
[2019-11-15] MEDS ORDERED: NITROGLYCERIN 1GM/1 INCH PACKET TD ONE (09:51)
[2019-11-15] MEDS ORDERED: FAMOTIDINE 20MG TAB 20 MG TAB ONE (11:20)
--- NOTE | 2019-11-15 15:34 | NUR ---
CHART REVIEWED. CALL TO RASHMI LUIS RE LOW WBC, HI CRP, VALV REQ FOR BCUL?, AGREED, AND ENTERED. CM TO FOLLOW IN AM
[2019-11-15] MEDS ORDERED: WARFARIN SODIUM 5 MG TAB PO SCH (16:00)
[2019-11-15] MEDS ORDERED: CYCLOBENZAPRINE HCL 10 MG TABLET ONE (16:17)
[2019-11-15] MEDS ORDERED: CYCLOBENZAPRINE HCL 10 MG TABLET PO PRN (16:30)
[2019-11-15] MEDS: CEFTRIAXONE SODIUM 1 GM IVP SCH (16:31)
[2019-11-15] MEDS ORDERED: MORPHINE SULFATE 2 MG/ML 1ML SYG ONE (17:28)
[2019-11-15 18:20] VITALS: BP 121/83
[2019-11-15] MEDS ORDERED: WARF-57 PO (19:17)
[2019-11-15] MEDS ORDERED: CARV6.25 PO (19:17)
[2019-11-15 19:33] VITALS: BP 117/71
[2019-11-15] MEDS: FAMOTIDINE 20MG TAB 20 MG TAB PO SCH (20:42)
[2019-11-15 23:45] VITALS: BP 122/82
[2019-11-16] MEDS: NITROGLYCERIN 1GM/1 INCH PACKET TD SCH ×2 (00:06→09:15)
[2019-11-16 03:48] VITALS: BP 118/71
[2019-11-16] MEDS: CEFTRIAXONE SODIUM 1 GM IVP SCH (05:24)
[2019-11-16 06:03] LABS: BASOPHILS % (AUTO) 0.2 % (0.0-5.0); EOSINOPHILS % (AUTO) 0.2 % (0.0-8.0); HEMATOCRIT 34.4 % (36-48); LYMPHOCYTES % (AUTO) 22.2 % (21.0-51.0); MEAN CORPUSCULAR HEMOGLOBIN 30.9 pg (27.0-33.0); MEAN CORPUSCULAR HGB CONC 32.6 g/dL (32.0-36.0); MONOCYTES % (AUTO) 7.9 % (3.0-13.0); NEUTROPHILS % (AUTO) 69.1 % (40.0-77.0); PLATELET COUNT (AUTO) 310 K/uL (130-400); RED BLOOD CELL COUNT(AUTO) 3.62 MIL/uL (4.00-5.50); RED CELL DISTRIBUTION WIDTH 12.8 % (11.0-15.5); WHITE BLOOD COUNT (AUTO) 4.8 K/uL (4.8-10.8)
[2019-11-16 06:14] LABS: CREATININE 1.2 mg/dL (0.5-1.5); POTASSIUM 4.1 mmol/L (3.5-5.1)
[2019-11-16 07:00] VITALS: BP 115/80
--- NOTE | 2019-11-16 07:45 | NUR ---
AM ASSESSMENT PT SITTING IN BED, WATCHING TV. A/O X 3. NO SOB. NO DISTRESS NOTED. DENIES CHEST PAIN OR DISCOMFORT. DENIES PALPITATIONS. TELE: SR. DENIES N/V AND/OR DIARRHEA. HOME MEDS TO BE RESUMED TODAY. UP AD ANNIA. INSTRUCTED TO CALL FOR ASSISTANCE. CALL ISAIAH W/IN REACH.
[2019-11-16] MEDS ORDERED: CARVEDILOL 6.25 MG TABLET PO SCH (08:00)
[2019-11-16] MEDS: FAMOTIDINE 20MG TAB 20 MG TAB PO SCH (08:25)
[2019-11-16] MEDS ORDERED: POTASSIUM CHLORIDE 10 MEQ/TAB.SA PO SCH (09:00)
[2019-11-16] MEDS ORDERED: FERROUS SULFATE 325 MG TABLET.DR PO SCH (09:00)
[2019-11-16] MEDS ORDERED: ENOXAPARIN SODIUM 30 MG/0.3 ML SQ SCH (09:00)
[2019-11-16] MEDS ORDERED: HYDROXYCHLOROQUINE SULFATE 200 MG TAB PO SCH (09:00)
[2019-11-16] MEDS ORDERED: PREDNISONE 10 MG TABLET PO SCH (09:00)
[2019-11-16] MEDS ORDERED: FUROSEMIDE 20 MG TABLET PO SCH (09:00)
[2019-11-16] MEDS ORDERED: ASPIRIN 325 MG TABLET PO SCH ×2 (09:00)
--- NOTE | 2019-11-16 10:40 | NUR ---
DISCHARGE VERBAL & WRITTEN DISCHARGE INSTRUCTIONS REVIEWED & GIVEN TO PT. QUESTIONS ENCOURAGED & CLARIFIED. PROPER CER, MGT, & PREVENTION OF UTI REVIEWED. NEW PRESCRIBED MEDICATIONS REVIEWED. REINFORCED IMPORTANCE OF COMPLETING ABS PRESCRIBED. PT INFORMED PRESCRIPTION TRANSMITTED TO PHARMACY IN FILE. TELE ARCHANA REMOVED. IV DISCONTINUED. PT TO GATHER PERSONAL BELONGINGS. PER PT, DAUGHTER WON'T BE ABLE TO FILLING OPERATOR [facility] UNTIL 1300. WILL NOTIFY STAFF WHEN DAUGHTER ARRIVES TO TAKE PT HOME.
[2019-11-16 11:00] VITALS: BP 116/73
[2019-11-16] MEDS ORDERED: KETO10 PO (11:07)
[2019-11-16] MEDS ORDERED: CEFD300C3 PO (11:20)
--- NOTE | 2019-11-16 13:00 | NUR ---
DISCHARGE DAUGHTER HERE TO TAKE PT HOME. PT TAKEN TO PRIVATE VEHICLE VIA WC BY Parviz BURTON PCP. NO DISTRESS NOTED.
[2019-11-16] MEDS ORDERED: WARFARIN SODIUM 5 MG TAB PO SCH (16:00)
[2019-11-16] MEDS ORDERED: CEFTRIAXONE SODIUM 1 GM IVP SCH (21:00)
== END 2019-11-16 13:00 | disposition home or self-care (01) ==
LOC: EDH 05:11 → EDHIP 05:12 → INTOOBSV 05:12 → 2DH 18:03
PROVIDERS: ADMIT Internal Medicine; ATTEND Internal Medicine
DX: R07.89 Other chest pain (principal); M32.9 Systemic lupus erythematosus, unspecified; I34.0 Nonrheumatic mitral (valve) insufficiency; N39.0 Urinary tract infection, site not specified; Z95.2 Presence of prosthetic heart valve; Z79.82 Long term (current) use of aspirin; Z79.01 Long term (current) use of anticoagulants; Z79.899 Other long term (current) drug therapy; Z88.8 Allergy status to other drugs, medicaments and biological substances
CPT/HCPCS: 36415 ×2; 71045; 80048; 80053; 80305; 81001; 81025; 82550; 83880; 84145; 84484 ×4; 85025 ×2; 85610; 85651; 85730; 86140; 87040 ×2; 93005 ×4; 96374; 96375; 99284; G0378 ×28; J0696 ×3; J1885 ×2; J7512

== ENCOUNTER → 2019-12-30 | Outpatient (CLI) | payer MEDICAID ==
[~2019-12-30] MED LIST changes: +CARV6.25 PO; +CEFD300C3 PO; +KETO10 PO; +WARF-57 PO
== END | disposition home or self-care (01) ==
LOC: SHCH 12:45
PROVIDERS: ATTEND Internal Medicine Cardiovascular Disease
DX: Z95.2 Presence of prosthetic heart valve (principal)
CPT/HCPCS: 93306; 93356

== ENCOUNTER 2020-01-31 20:13 | Emergency (ER) | payer MEDICAID ==
[2020-01-31] MEDS ORDERED: SODIUM CHLORIDE 0.9% 1000ML 1,000 ML IV ONE (20:14)
[2020-01-31 20:59] LABS: BASOPHILS % (AUTO) 0.5 % (0.0-5.0); HEMATOCRIT 38.1 % (36-48); LYMPHOCYTES % (AUTO) 18.7 % (21.0-51.0); MEAN CORPUSCULAR HEMOGLOBIN 29.9 pg (27.0-33.0); MEAN CORPUSCULAR HGB CONC 33.1 g/dL (32.0-36.0); MEAN CORPUSCULAR VOLUME 90.3 fL (79-99); MONOCYTES % (AUTO) 10.4 % (3.0-13.0); NEUTROPHILS % (AUTO) 68.1 % (40.0-77.0); PLATELET COUNT (AUTO) 212 K/uL (130-400); RED BLOOD CELL COUNT(AUTO) 4.22 MIL/uL (4.00-5.50); RED CELL DISTRIBUTION WIDTH 12.1 % (11.0-15.5); WHITE BLOOD COUNT (AUTO) 3.9 K/uL (4.8-10.8)
[2020-01-31] MEDS ORDERED: KETOROLAC TROMETHAMINE 15MG/ML ONE (21:18)
[2020-01-31 21:21] LABS: CREATININE 1.1 mg/dL (0.5-1.5); INR 1.1 (0.85-1.15); PARTIAL THROMBOPLASTIN TIME 40.1 SEC (26.3-35.5); POTASSIUM 4.2 mmol/L (3.5-5.1); PROTHROMBIN TIME 11.5 SEC (9.6-11.6)
[2020-01-31 21:26] LABS: ALBUMIN 3.6 g/dL (3.5-5.0); BILIRUBIN,TOTAL 0.4 mg/dL (0.2-1.0); TOTAL PROTEIN, SERUM 7.9 g/dL (6.0-8.3)
[2020-01-31 22:24] LABS: APPEARANCE,URINE Cloudy (CLEAR); BILIRUBIN,URINE Negative (NEGATIVE); COLOR,URINE Yellow (YELLOW); GLUCOSE, URINE (UA) Negative (NEGATIVE); KETONES,URINE Negative (NEGATIVE); LEUKOCYTE ESTERASE ,URINE Small (NEGATIVE); NITRATE,URINE Positive (NEGATIVE); OCCULT BLOOD,URINE Negative (NEGATIVE); PH,URINE 7.5 (5.0-8.0); PROTEIN,URINE Trace mg/dL (NEGATIVE)
[2020-01-31 22:33] LABS: AMPHET/METH SCREEN,URINE NEGATIVE (NEGATIVE); BARBITURATE SCREEN, URINE NEGATIVE (NEGATIVE); BENZODIAZEPINES SCREEN,URINE NEGATIVE (NEGATIVE); CANNABINOID SCREEN,URINE NEGATIVE (NEGATIVE); COCAINE SCREEN,URINE NEGATIVE (NEGATIVE); OPIATE SCREEN,URINE NEGATIVE (NEGATIVE); PHENCYCLIDINE SCREEN,URINE NEGATIVE (NEGATIVE)
[2020-01-31 22:34] LABS: BACTERIA,URINE Many /HPF (None Seen); RBC,URINE 0-1 /HPF (0-1); SQUAMOUS EPITHELIAL CELL,UR Rare /HPF (0-2)
[2020-01-31] MEDS ORDERED: NITROFURANTOIN MONOHYD/M-CRYST 100 MG CAPSULE PO ONE (23:22)
== END 2020-01-31 23:37 | disposition home or self-care (01) ==
LOC: EDH 20:13
DX: G40.89 Other seizures (principal); N39.0 Urinary tract infection, site not specified; R79.1 Abnormal coagulation profile; M32.9 Systemic lupus erythematosus, unspecified; Z88.6 Allergy status to analgesic agent; Z79.899 Other long term (current) drug therapy; Z98.890 Other specified postprocedural states
CPT/HCPCS: 36415; 70450; 72070; 72100; 80053; 80305; 81001; 82948; 85025; 85610; 85730; 87077; 87088; 87186; 93005; 96374; 99285; J1885; J7030; 96361